=== PATIENT | female | born 1945 | race Caucasian/White ===

== ENCOUNTER → 2017-09-15 | Outpatient (CLI) | payer MEDICARE ==
--- NOTE | 2017-09-15 08:09 | US ---
EXAMINATION TYPE: US transvaginal DATE OF EXAM: 09/15/2017 COMPARISON: NONE CLINICAL HISTORY: R19.09 Other intra-abdominal and pelvic swelling. Patient states CT done at [facility] showed right ovarian mass, and mass on colon. Weight loss of 30 lbs TECHNIQUE: Transvaginal sonographic images were medically necessary to better assess the following an atomy: Ovaries Date of LMP: Years. Post menopausal EXAM MEASUREMENTS: Uterus: 6.2 x 2.9 x 2.0 cm Endometrial Stripe: 0.6 cm Right Ovary: Not visualized cm Left Ovary: Not visualized cm 1. Uterus: Anteverted 2. Endometrium: fluid filled 3. Right Ovary: Obscured by overlying bowel gas 4. Left Ovary: Obscured by overlying bowel gas . 5. Bilateral Adnexa: wnl 6. Posterior cul-de-sac: wnl Large amounts of active bowel in pelvis IMPRESSION: 1. Fluid-filled endometrium. Otherwise unremarkable examination.
== END | disposition home or self-care (01) ==
LOC: RADUSWWP 06:59
PROVIDERS: ATTEND Family Medicine
DX: R19.09 Other intra-abdominal and pelvic swelling, mass and lump (principal)
CPT/HCPCS: 76830